=== PATIENT | female | born 1950 | race Caucasian/White ===

== ENCOUNTER 2016-12-31 11:23 | Emergency (ER) | payer BC, OTHER ==
[~2016-12-31] VITALS: Ht 162.6 cm; Wt 63.5 kg
[~2016-12-31 11:23] MED LIST: CYM30 PO; FERR-57 PO; FERR240T5 PO; HYDR-4100 PO; METO25TA3 PO; THIA100T13 PO
[2016-12-31 11:32] VITALS: BP 114/54; PULSE 86; RESP 19; TEMP 98.4; O2SAT 94
[2016-12-31 11:59] LABS: BASOPHILS # (AUTO) 0.1 K/uL (0.0-0.2); BASOPHILS % (AUTO) 1.3 % (0.0-2.0); EOSINOPHILS # (AUTO) 0.2 K/uL (0.0-0.4); EOSINOPHILS % (AUTO) 3.9 % (0.0-4.0); HEMATOCRIT 38.8 % (36-48); HEMOGLOBIN 13.1 g/dL (12.0-16.0); LYMPHOCYTES # (AUTO) 2.1 K/uL (1.0-5.5); LYMPHOCYTES % (AUTO) 42.4 % (20.5-51.5); MEAN CORPUSCULAR HEMOGLOBIN 34 pg (27-31); MEAN CORPUSCULAR HGB CONC 34 % (32-36); MEAN CORPUSCULAR VOLUME 101 fL (79.0-98.0); MONOCYTES # (AUTO) 0.3 K/uL (0.0-1.0); MONOCYTES % (AUTO) 6.8 % (1.7-9.3); NEUTROPHILS # (AUTO) 2.3 K/uL (1.8-7.7); NEUTROPHILS % (AUTO) 45.6 % (40.0-70.0); PLATELET COUNT (AUTO) 139 K/uL (130-430); RED BLOOD CELL COUNT(AUTO) 3.85 MIL/uL (4.2-6.2); RED CELL DISTRIBUTION WIDTH 13.2 % (9.0-15.0)
[2016-12-31 12:14] LABS: PROTHROMBIN TIME 10.9 SECS (9.5-12.5)
[2016-12-31 12:17] LABS: ANION GAP 13 (5-15); CALCIUM 8.6 mg/dL (8.4-11.0); CHLORIDE 107 mmol/L (98-107); CREATININE 0.61 mg/dL (0.55-1.30); GLUCOSE 96 mg/dL (70-99); POTASSIUM 3.8 mmol/L (3.5-5.1); SODIUM SERUM 139 mmol/L (136-145); UREA NITROGEN, BLOOD 4 mg/dL (8-21)
[2016-12-31 12:18] LABS: GFR AFRICAN AMERICAN 126 mL/min (>90)
[2016-12-31 12:21] LABS: ALANINE AMINOTRANSFERASE 31 U/L (12-78); ALBUMIN 3.4 g/dL (3.4-4.8); ALCOHOL, BLOOD 270 mg/dL (<10); ASPARTATE AMINOTRANSFERASE 47 U/L (10-37); TOTAL BILIRUBIN 0.4 mg/dL (0.0-1.0)
[2016-12-31 12:23] LABS: ACETAMINOPHEN < 1 ug/mL (1-30)
[2016-12-31 13:41] LABS: BILIRUBIN,URINE NEGATIVE (NEGATIVE); BLOOD, URINE NEGATIVE (NEGATIVE); CLARITY/URINE CLEAR (CLEAR); COLOR,URINE YELLOW (YELLOW); GLUCOSE,URINE NEGATIVE (NEGATIVE); KETONES,URINE TRACE (NEGATIVE); LEUKOCYTE ESTERASE ,URINE NEGATIVE (NEGATIVE); NITRITE, URINE NEGATIVE (NEGATIVE); PROTEIN URINE NEGATIVE (NEGATIVE); UROBILINOGEN,URINE 0.2 (0.2-1.0)
[2016-12-31 13:50] LABS: BACTERIA,URINE RARE /HPF (None Seen); RBC,URINE 0-3 /HPF (0-3)
[2016-12-31 13:51] LABS: MUCUS,URINE 1+ /LPF (None Seen)
[2016-12-31 13:52] LABS: BARBITURATE, URINE NEGATIVE (NEG <=200); BENZODIAZEPINE, URINE NEGATIVE (NEG <=150); CANNABINOID, URINE NEGATIVE (NEG <=50); COCAINE, URINE NEGATIVE (NEG <=150); METHAMPHETAMINES SCREEN,URINE NEGATIVE (NEG <=500); OPIATE, URINE NEGATIVE (NEG <=100); PHENCYCLIDINE SCREEN,URINE NEGATIVE (NEG <=25); UR TRICYCLIC ANTIDEPRESSANTS NEGATIVE (NEG <=300); URINE AMPHETAMINE NEGATIVE (NEG <=500); URINE METHADONE NEGATIVE (NEG <=200); URINE OXYCODONE SCREEN NEGATIVE (NEG <=100); URINE PROPOXYPHENE SCREEN NEGATIVE (NEG <=300)
[2016-12-31 16:34] VITALS: BP 116/58; PULSE 80; RESP 20; TEMP 98.4; O2SAT 96
== END 2016-12-31 16:34 | disposition home or self-care (01) ==
LOC: SED 11:38
DX: S01.112A Laceration without foreign body of left eyelid and periocular area, initial encounter (principal); F10.129 Alcohol abuse with intoxication, unspecified; W01.0XXA Fall on same level from slipping, tripping and stumbling without subsequent striking against object, initial encounter; Y93.89 Activity, other specified; Y92.89 Other specified places as the place of occurrence of the external cause; Y99.8 Other external cause status
CPT/HCPCS: 36415; 70450; 70486; 71010; 72125; 80053; 80307; 81000; 84484; 85025; 85610; 85730; 93005; 99285; G0480; G0481; G0482

== ENCOUNTER 2017-12-06 17:05 | Inpatient (IN) | payer OTHER ==
[~2017-12-06] VITALS: Ht 167.6 cm; Wt 66.2 kg
[2017-12-06 17:05] VITALS: BP_SYST 156
[~2017-12-06 17:05] MED LIST changes: -HYDR-4100 PO
--- NOTE | 2017-12-06 17:05 | NUR ---
Pt placed in bed 6 by [facility] 64
--- NOTE | 2017-12-06 17:10 | NUR ---
ER Dr. Figueroa at bedside examining patient.
--- NOTE | 2017-12-06 17:15 | NUR ---
Pt presents with 20G IV on L hand.
--- NOTE | 2017-12-06 17:15 | NUR ---
Pt presents to ER s/p mechanical fall. Pt was found on floor by her landlord, according to pt she "passed out" 3 days ago and woke up on the floor of her apartment. Pt states she was on the ground for 3 days before landlord discovered her this afternoon. Pt reports that she was unable to help herself off from the ground due to general weakness. Upon arrival to ER, pt has purplish discoloration on L shoulder; L shoulder also stiff and edematous. Pt reports mild pain on L shoulder with movement. Pt's clothing contaminated with feces and urine; pt cleaned up and changed into hospital gown. Pt has redness to coccyx and abrasions to lower extremities. Pt AOX4, speaking full sentences, respirations even and unlabored, no signs of acute distress.
[2017-12-06] MEDS ORDERED: NACL 0.9% 1,000 ML IV ONE (17:30)
[2017-12-06] MEDS ORDERED: ONDANSETRON HCL 4 MG/2 ML VIAL IVP ONE (17:30)
[2017-12-06] MEDS ORDERED: fentaNYL CITRATE/PF 100 MCG/2 ML AMP IVP ONE (17:30)
--- NOTE | 2017-12-06 17:30 | NUR ---
Radiology at bedside.
--- NOTE | 2017-12-06 17:37 | NUR ---
Laboratory at bedside.
--- NOTE | 2017-12-06 17:52 | NUR ---
Pt medicated as ordered by Dr. Figueroa; pt tolerated well; will continue to monitor. Pt on superintendent pier.
--- NOTE | 2017-12-06 18:00 | NUR ---
Patient transported to radiology via gurney, accompanied by rad staff.
[2017-12-06 18:04] LABS: BASOPHILS # (AUTO) 0.1 K/uL (0.0-0.2); BASOPHILS % (AUTO) 0.8 % (0.0-2.0); HEMATOCRIT 32.6 % (36-48); HEMOGLOBIN 11.3 g/dL (12.0-16.0); LYMPHOCYTES # (AUTO) 0.9 K/uL (1.0-5.5); LYMPHOCYTES % (AUTO) 9.5 % (20.5-51.5); MEAN CORPUSCULAR HEMOGLOBIN 34 pg (27-31); MEAN CORPUSCULAR HGB CONC 35 % (32-36); MEAN CORPUSCULAR VOLUME 99 fL (79.0-98.0); MONOCYTES # (AUTO) 1.1 K/uL (0.0-1.0); MONOCYTES % (AUTO) 12.4 % (1.7-9.3); NEUTROPHILS # (AUTO) 6.9 K/uL (1.8-7.7); NEUTROPHILS % (AUTO) 77.3 % (40.0-70.0); PLATELET COUNT (AUTO) 117 K/uL (130-430); RED BLOOD CELL COUNT(AUTO) 3.29 MIL/uL (4.2-6.2); RED CELL DISTRIBUTION WIDTH 13.4 % (9.0-15.0)
--- NOTE | 2017-12-06 18:10 | NUR ---
Returned from radiology, back to [facility].
--- NOTE | 2017-12-06 18:24 | NUR ---
Medication reconciliation completed with information provided by pt. Any prior medication reconciliation on file was reviewed and corrected.
[2017-12-06 18:34] LABS: CALCIUM 9.1 mg/dL (8.4-11.0); CREATININE 1.18 mg/dL (0.55-1.30); POTASSIUM 3.5 mmol/L (3.5-5.1)
[2017-12-06 18:36] LABS: INR 1.1 (0.8-1.2); PROTHROMBIN TIME 11.5 SECS (9.5-12.5)
--- NOTE | 2017-12-06 18:39 | NUR ---
Pt resting comfortably on gurney, no signs of distress, will continue to monitor.
[2017-12-06 18:48] LABS: TOTAL BILIRUBIN 2.3 mg/dL (0.0-1.0)
--- NOTE | 2017-12-06 19:08 | NUR ---
Recieved report from De SANCHEZ. Will assume care at this time.
[2017-12-06 19:22] LABS: CKMB RELATIVE INDEX 0.8 (0.0-2.9); CREATINE KINASE MB 17.2 ng/mL (0-3.6)
[2017-12-06] MEDS ORDERED: ASPIRIN 81 MG TAB.CHEW PO ONE (19:30)
[2017-12-06] MEDS ORDERED: MORPHINE 4 MG/ML INJ. SYRINGE IVP PRN (19:30)
--- NOTE | 2017-12-06 19:33 | NUR ---
Patient will be admitted to care of Dr. Bailey Admitted to Telemetry unit. Will go to room 120B. Belongings list completed. Summary report printed. Report will be given at bedside. Transfer to telemetry via ACLS protocol. Licensed nurse present. IV present no signs or symptoms of infiltration.
[2017-12-06 19:40] VITALS: BP_SYST 127
--- NOTE | 2017-12-06 19:40 | NUR ---
ADMISSION NOTE Received patient from ER via gurney. Patient admitted with diagnosis of ELEVATED TROPONIN. Patient is awake, alert, oriented X . Patient oriented to hospital room, call light, toileting, pain management and safety-teach back done. Patient informed that LORAINE will be HER nurse and that their room number is 120B. Personal belongings checked and Belongings List documented. Call light within reach.
--- NOTE | 2017-12-06 20:00 | NUR ---
Initial PM Note Pt is fully awake, alert and oriented x4. Speech is clear and pt is able to make her needs known. Lt arm sling is in place and neurovascular checks to BUE are WNL. No c/o pain at this time. Pt is able to wiggle all her fingers freely. Pt denies numbness or tingling sensation. Saline lock in left hand is without any signs of infiltration. Call light is with pt and bed alarm is on. Pt was instructed to call for assistance as needed and pt verbalized understanding.
--- NOTE | 2017-12-06 21:50 | NUR ---
Paged Dr. Bailey Pt's heart rates noted to be ranging from low 100's to 170's. Pt is asymptomatic. Dr. Bailey was paged.
[2017-12-06] MEDS ORDERED: DILTIAZEM HCL 25 MG/5 ML VIAL IVP ONE (22:00)
[2017-12-06] MEDS ORDERED: DILTIAZEM HCL 25 MG/5 ML VIAL ONE (22:09)
--- NOTE | 2017-12-06 22:19 | NUR ---
Cardizem IV Cardizem 10mg was given IV as ordered by Dr. Bailey. HR 145 and BP 96/60. Addendum: 12/07/17 at 0248 by Soo Vázquez RN Pt remains asymptomatic.
[2017-12-07 00:04] VITALS: BP_SYST 100
[2017-12-07] MEDS ORDERED: ONDANSETRON HCL 4 MG/2 ML VIAL IVP PRN (00:30)
[2017-12-07] MEDS ORDERED: ALBUTEROL SULFATE 0.083% 2.5 MG/3 ML VIAL.NEB INH PRN (00:30)
[2017-12-07] MEDS ORDERED: NACL 0.9% 1,000 ML IV ONE ×2 (00:30)
[2017-12-07] MEDS ORDERED: LORazepam 2 MG/ML VIAL IVP PRN (00:30)
[2017-12-07] MEDS ORDERED: MORPHINE 2 MG/ML INJ. SYRINGE IVP PRN (00:30)
--- NOTE | 2017-12-07 00:41 | NUR ---
CONSULTATION PAGED/CALLED Reason for Consultation: LEFT HUMERAL FRACTURE Person Who was Notified:ZA Consulting Physician: CHAPO LOMBARDI IS SECURITIES RESEARCH ANALYST Substance Abuse Specialist Specialty: ORTHO Ordering Physician: VIOLET
--- NOTE | 2017-12-07 00:50 | NUR ---
CONSULTATION PAGED/CALLED Reason for Consultation: ELVATED TROP Person Who was Notified: DRUM HANDLER 22 Consulting Physician: MICHEAL SWENSON IS COMPENSATION CONSULTING MANAGER Telecom Engineer Specialty: CARDIO Ordering Physician: FRANCISCO
--- NOTE | 2017-12-07 01:26 | NUR ---
Normal Saline Bolus Started NS IVF bolus at 999ml/hr as ordered by Dr. Bailey. IV site is without any signs of infiltration.
--- NOTE | 2017-12-07 01:30 | NUR ---
Dr. Bailey's Visit Dr. Bailey came to see pt.
[2017-12-07 01:50] VITALS: BP_SYST 96
[2017-12-07] MEDS ORDERED: SODIUM BICARBONATE 8.4% JECT 50 MEQ/50 ML SYRINGE ONE (01:57)
--- NOTE | 2017-12-07 02:00 | NUR ---
Rounds Pt is resting comfortably in bed. Bolus NS IVF is infusing well in left hand at 999ml/hr. Heart rates are in the 80's.
[2017-12-07 02:37] LABS: CALCIUM 7.5 mg/dL (8.4-11.0); CREATININE 0.84 mg/dL (0.55-1.30); POTASSIUM 3.6 mmol/L (3.5-5.1)
[2017-12-07 02:45] LABS: ALBUMIN 2.9 g/dL (3.4-4.8); TOTAL BILIRUBIN 1.2 mg/dL (0.0-1.0)
--- NOTE | 2017-12-07 02:49 | NUR ---
Critical Lab Result Troponin 0.164. Pt is asymptomatic and sleeping without any distress noted. Dr. Chance who is covering for Dr. Patel has been paged.
[2017-12-07] MEDS: SODIUM BICARBONATE 8.4% VIAL 50 MEQ in 0.45% NACL 1,000 ML IV SCH ×3 (03:18→15:10)
--- NOTE | 2017-12-07 04:00 | NUR ---
Rounds Pt is sleeping without any distress noted. IVF is infusing well in left hand. Fall and safety precautions are in place. Call light is with pt and bed alarm is on.
--- NOTE | 2017-12-07 06:30 | NUR ---
CLOSING NOTE PT IS AWAKE AND RESTING COMFORTABLY IN BED. IVF IS INFUSING WELL IN LH. HEART RATES ARE IN THE 80'S AND PT DENIES DISCOMFORT. FALL AND SAFETY PRECAUTIONS ARE IN PLACE. WILL ENDORSE TO DAY SHIFT NURSE.
[2017-12-07 06:41] LABS: BASOPHILS % (AUTO) 0.3 % (0.0-2.0); EOSINOPHILS % (AUTO) 0.1 % (0.0-4.0); HEMOGLOBIN 8.2 g/dL (12.0-16.0); LYMPHOCYTES # (AUTO) 1.1 K/uL (1.0-5.5); LYMPHOCYTES % (AUTO) 19.1 % (20.5-51.5); MEAN CORPUSCULAR HEMOGLOBIN 33 pg (27-31); MEAN CORPUSCULAR HGB CONC 33 % (32-36); MEAN CORPUSCULAR VOLUME 101 fL (79.0-98.0); MONOCYTES # (AUTO) 0.7 K/uL (0.0-1.0); MONOCYTES % (AUTO) 12.5 % (1.7-9.3); NEUTROPHILS # (AUTO) 4.1 K/uL (1.8-7.7); PLATELET COUNT (AUTO) 83 K/uL (130-430); RED BLOOD CELL COUNT(AUTO) 2.48 MIL/uL (4.2-6.2); RED CELL DISTRIBUTION WIDTH 13.2 % (9.0-15.0); WHITE BLOOD COUNT (AUTO) 5.9 K/uL (4.8-10.8)
--- NOTE | 2017-12-07 07:10 | NUR ---
Critical Lab: Troponin 0.212. Paging Dr. Patel. Awaiting callback.
--- NOTE | 2017-12-07 07:27 | NUR ---
Opening Note: Patient laying in bed resting. Patient denies pain and discomfort. Breathing is even ad unlabored with no distress noted. IV Patent and intact running IV fluids per MD order. Immobilizer in place. Safety precautions in place; bed in lowest position, wheels locked, side rails x3, bed alarm activated and call light within reach. No needs at this time. Will continue to monitor.
[2017-12-07 07:32] LABS: CKMB RELATIVE INDEX 0.9 (0.0-2.9); CREATINE KINASE MB 11.6 ng/mL (0-3.6)
[2017-12-07 08:12] VITALS: BP_SYST 127
[2017-12-07] MEDS: DULoxetine HCL 30 MG CAPSULE.DR (CYMBALTA) PO SCH (09:24)
[2017-12-07] MEDS: METOPROLOL SUCCINATE 25 MG TAB.SR.24H (TOPROL XL) PO SCH (09:25)
[2017-12-07] MEDS: ASPIRIN 81 MG TAB.CHEW PO SCH (09:25)
[2017-12-07] MEDS: HYDROcodone/ACETAMIN 5-325 MG TAB (NORCO/ VICODIN) PO PRN ×2 (09:25→20:34)
[2017-12-07] MEDS: THIAMINE HCL 100 MG TABLET PO SCH (09:25)
[2017-12-07] MEDS: ENOXAPARIN SODIUM 40 MG/0.4 ML SYRINGE SUBCUT SCH (09:27)
--- NOTE | 2017-12-07 10:02 | NUR ---
Rounding: Patient laying in bed resting. No distress noted. No needs at this time. Will continue to monitor.
--- NOTE | 2017-12-07 10:06 | NUR ---
CONSULTATION PAGED/CALLED Reason for Consultation: [] HUMURUS FRACTURE Person Who was Notified: [] CHEN Consulting Physician: [] DR BRO It Coordinator Specialty: [] ORTHO Ordering Physician: [] DR KHAN
--- NOTE | 2017-12-07 10:10 | NUR ---
Nutrition Update Guilherme Scale 18 noted. Pt admitted for elevated troponin, fracture humerus. Diet: cardiac BMI: 23.6 kg/m2 RD to follow per nutrition care standards.
[2017-12-07 12:19] VITALS: BP_SYST 103
--- NOTE | 2017-12-07 12:37 | NUR ---
Rounding: Patient laying in bed resting. Patient denies pain and discomfort. Breathing is even and unlabored with no distress noted. Morning medications tolerated well. Safety precautions in place; bed in lowest position, wheels locked, side rails x3, bed alarm activated and call light within reach. No needs at this time. Will continue to monitor.
--- NOTE | 2017-12-07 14:04 | NUR ---
Rounding: Patient laying in bed resting. No distress noted. No needs at this time. Will continue to monitor.
--- NOTE | 2017-12-07 14:30 | NUR ---
IV RE-INSERTION: IV line dislodged. Restarted on right forearm. Successful after 1 attempts. Resumed current IVF of 50 meq of sodium bicarbonate in 0.45 NS and regulated @ 150 per hour. Will observe for any signs of infiltration.
--- NOTE | 2017-12-07 16:10 | NUR ---
Rounding: Patient laying in bed resting. Patient denies pain and discomfort. Breathing is even and unlabored with no distress noted. IV fluids running with no signs of infiltration. Safety precautions in place; bed in lowest position, wheels locked, side rails x3, bed alarm activated and call light within reach. No needs at this time. Will continue to monitor.
[2017-12-07 16:23] VITALS: BP_SYST 100
--- NOTE | 2017-12-07 18:29 | NUR ---
Closing Note: Patient laying in bed resting. Patient denies pain and discomfort. Breathing is even ad unlabored with no distress noted. IV Patent and intact running IV fluids per MD order. Shoulder immobilizer in place. Safety precautions in place; bed in lowest position, wheels locked, side rails x3, bed alarm activated and call light within reach. All needs met. Will endorse plan of care to NOC, nurse.
--- NOTE | 2017-12-07 19:00 | NUR ---
REPORT: RECEIVED BEDSIDE REPORT FROM DANIEL THURMAN.PATIENT IN BED AWAKE ORIENTED X3.HAS TOLERABLE LEFT UPPER FX ARM.
--- NOTE | 2017-12-07 19:35 | NUR ---
PM ASSESSMENT: PATIENT IN BED ,AWAKE ORIENTED X3. HAS LEFT UPPER ARM IMMOBILIZER DUE TO FRACTURE.ARM SORE. MOVES FINGERS AND HAND FREELY. COLOR NORMAL. IVF INFUSING WELL AT 150ML/HR. ROOM AIR. BP 89/47 HR 88/MIN SR, LOWERED BED SLIGHTLY 86/45. DENIES DIZZINESS ,CHEST PAIN NOR SOB. TOLD PATIENT WILL LAY HEAD OF BED AT LEAST 20 DEGREES. RECHECKED AT 2019 BP 114/58.LIGHT BRUISE TO BOTH KNEES. MOVES LEGS FREELY. NORMAL SINUS RHYTHM THIS TIME. WILL MONITOR CLOSELY.
--- NOTE | 2017-12-07 20:35 | NUR ---
PAIN: COMPLAIN OF LEFT UPPER ARM/SHOULDER PAIN.LEVEL 5/10. NORCO 5/325MG PO GIVEN. REPOSITIONED FOR COMFORT.
--- NOTE | 2017-12-07 22:15 | NUR ---
STILL AWAKE. WATCHING TV SHOWS. NO PAIN IF NO MOVEMENT.
[2017-12-08 00:05] VITALS: BP_SYST 100
--- NOTE | 2017-12-08 00:35 | NUR ---
PATIENT AWAKEN DUE TO IV PUMP ALARM. NO DISTRESS.
[2017-12-08] MEDS: SODIUM BICARBONATE 8.4% VIAL 50 MEQ in 0.45% NACL 1,000 ML IV SCH ×3 (01:44→11:45)
--- NOTE | 2017-12-08 03:30 | NUR ---
RESTING QUITELY WITH EYES CLOSE.
--- NOTE | 2017-12-08 05:05 | NUR ---
VOIDED VIA BED QIU WITH SMEAR OF LIGHT BLACKISH STOOL. GRIFFIN CARE RENDERED.
--- NOTE | 2017-12-08 06:45 | NUR ---
CLOSING: ALL NEEDS WERE ATTENDED.FRACTURE PAIN PRESENT DURING MOVEMENT OTHERWISE SORE.VOIDED WITH DARK CONCENTRATED URINE. IVF INFUSING AT 150ML/HR. SELF TURN AT TIMES.NO ACUTE DISTRESS. ROOM AIR. CALL LIGHT HAS BEEN WITHIN REACH AND USES CORRECTLY. BED IN LOW POSITION.
--- NOTE | 2017-12-08 07:50 | NUR ---
INITIAL NOTE RECEIVED PT IN BED, NO S/S OF DISTRESS OR SOB NOTED, PT HAS NO C/O PAIN AT THIS TIME, PT IN STABLE CONDITION, PT AAOX4, VERBAL, IV CATHETER PATENT, NO SIGNS OF INFECTION OR INFILTRATION NOTED. BED AT LOWEST POSITION, CALL LIGHT WITHIN REACH, WILL CONTINUE TO MONITOR PT FOR ANY CHANGES. PT HAS AN IMMOBILIZER ON LEFT ARM, PULSE PALPABLE, CAPILLARY REFILL LESS THAN 3 SECONDS, ABLE TO WIGGLE FINGERS. FALL AND SAFETY PRECAUTIONS IN PLACE.
[2017-12-08] MEDS: DULoxetine HCL 30 MG CAPSULE.DR (CYMBALTA) PO SCH (07:58)
[2017-12-08] MEDS: METOPROLOL SUCCINATE 25 MG TAB.SR.24H (TOPROL XL) PO SCH (07:58)
[2017-12-08] MEDS: ASPIRIN 81 MG TAB.CHEW PO SCH (07:58)
[2017-12-08] MEDS: THIAMINE HCL 100 MG TABLET PO SCH (07:58)
[2017-12-08] MEDS: HYDROcodone/ACETAMIN 5-325 MG TAB (NORCO/ VICODIN) PO PRN (07:58)
[2017-12-08] MEDS: ENOXAPARIN SODIUM 40 MG/0.4 ML SYRINGE SUBCUT SCH (08:00)
[2017-12-08 08:03] VITALS: BP_SYST 125
--- NOTE | 2017-12-08 10:21 | NUR ---
ROUNDS PT IN BED, NO S/S OF DISTRESS OR SOB NOTED, PT WATCHING TV, WILL CONTINUE TO MONITOR PT FOR ANY CHANGES, PT IN STABLE CONDITION.
[2017-12-08 10:30] LABS: BASOPHILS % (AUTO) 0.7 % (0.0-2.0); EOSINOPHILS % (AUTO) 0.7 % (0.0-4.0); HEMATOCRIT 23.3 % (36-48); HEMOGLOBIN 7.9 g/dL (12.0-16.0); LYMPHOCYTES # (AUTO) 1.2 K/uL (1.0-5.5); LYMPHOCYTES % (AUTO) 23.3 % (20.5-51.5); MEAN CORPUSCULAR HEMOGLOBIN 34 pg (27-31); MEAN CORPUSCULAR HGB CONC 34 % (32-36); MEAN CORPUSCULAR VOLUME 99 fL (79.0-98.0); MONOCYTES # (AUTO) 0.4 K/uL (0.0-1.0); MONOCYTES % (AUTO) 7.6 % (1.7-9.3); NEUTROPHILS # (AUTO) 3.3 K/uL (1.8-7.7); NEUTROPHILS % (AUTO) 67.7 % (40.0-70.0); PLATELET COUNT (AUTO) 90 K/uL (130-430); RED BLOOD CELL COUNT(AUTO) 2.36 MIL/uL (4.2-6.2); RED CELL DISTRIBUTION WIDTH 12.9 % (9.0-15.0); WHITE BLOOD COUNT (AUTO) 4.9 K/uL (4.8-10.8)
[2017-12-08 11:15] LABS: CKMB RELATIVE INDEX 0.5 (0.0-2.9); CREATINE KINASE MB 2.7 ng/mL (0-3.6)
[2017-12-08 12:04] VITALS: BP_SYST 114
--- NOTE | 2017-12-08 12:50 | NUR ---
ROUNDS PT IN BED, NO S/S OF DISTRESS OR SOB NOTED, PT WATCHING TV, WILL CONTINUE TO MONITOR PT FOR ANY CHANGES, PT IN STABLE CONDITION.
--- NOTE | 2017-12-08 12:51 | NUR ---
Pagedanielle Scott for CBC results. Addendum: 12/08/17 at 1336 by Maryam Dias RN SPOKE WITH DR SCOTT AND LET HIM KNOW ABOUT CBC RESULTS, PER MD NO NEW ORDERS GIVEN AND PT CAN BE TRANSFERRED TO [facility] PER PREVIOUS ORDER
--- NOTE | 2017-12-08 13:17 | NUR ---
[facility] ROOM AVAILABLE FOR [facility], ROOM 112B, REPORT TO BE GIVEN TO [phone], [facility] ON WILL CALL [phone].
--- NOTE | 2017-12-08 13:23 | NUR ---
DCP. MET WITH PATIENT. A/O LIVES ALONE. NO SPOUSE NO CHILDREN. NOK , MOTHER LIVES AT [place]. LIVES AT A SECOND FLOOR APT, IN THE PROCESS OF MOVING TO GROUND FLOOR APT.DX MECHANICAL FALL, RHABDO, LEFT HUMERUS FRACTURE, DEPRESSION, WINE OCCASIONALLY TRANSPO, USES DIAL A RIDE. SHE DOES NOT USE ANY DME FOR AMBULATION. DOES NOT DRIVE. DCP DISCUSSED. TO SNF FOR P.T. AND PAIN MNGT. PATIENT AGREED. [facility] RM [address]. T [phone]. [facility] T [phone] ARRANGED FOR A WILL CALL. FAISAL FINNEY RN/CM T [phone].
--- NOTE | 2017-12-08 13:40 | NUR ---
TEENA. MOLD PRESSER AT 5 PM [facility] T [phone].
[2017-12-08 14:45] VITALS: BP_SYST 101
--- NOTE | 2017-12-08 14:50 | NUR ---
ROUNDS PT IN BED, NO S/S OF DISTRESS OR SOB NOTED, PT WATCHING TV, WILL CONTINUE TO MONITOR PT FOR ANY CHANGES, PT IN STABLE CONDITION.
--- NOTE | 2017-12-08 15:15 | NUR ---
REPORT REPORT GIVEN TO ANI AT [facility] [phone].
--- NOTE | 2017-12-08 16:10 | NUR ---
ROUNDS PT IN BED, NO S/S OF DISTRESS OR SOB NOTED, PT WATCHING TV, WILL CONTINUE TO MONITOR PT FOR ANY CHANGES, PT IN STABLE CONDITION.
[2017-12-08 16:35] VITALS: BP_SYST 101
--- NOTE | 2017-12-08 17:00 | NUR ---
PT TRANSFERRED Report given to Adriana at [facility]. Transfer packet with Transfer Orders and Medication Reconciliation form given to EMT with report. Exitcare provided. [facility] ID band removed, replaced with ID band with pt's name and . IV catheter removed, intact and dressing applied, no active bleeding. All belongings sent with patient. Patient left floor via gurney escorted by EMT in no distress.
== END 2017-12-08 17:25 | DRG 281 ==
LOC: SED 17:05 → STU 19:21
PROVIDERS: ADMIT Internal Medicine; ATTEND Internal Medicine
DX: I21.A1 Myocardial infarction type 2 (principal); S42.292A Other displaced fracture of upper end of left humerus, initial encounter for closed fracture; M62.82 Rhabdomyolysis; D64.9 Anemia, unspecified; F32.9 Major depressive disorder, single episode, unspecified; I10 Essential (primary) hypertension; R01.1 Cardiac murmur, unspecified; D69.6 Thrombocytopenia, unspecified; R55 Syncope and collapse; R00.0 Tachycardia, unspecified; F10.20 Alcohol dependence, uncomplicated; W01.0XXA Fall on same level from slipping, tripping and stumbling without subsequent striking against object, initial encounter; Y93.01 Activity, walking, marching and hiking; Y92.038 Other place in apartment as the place of occurrence of the external cause; Y99.8 Other external cause status; Z82.49 Family history of ischemic heart disease and other diseases of the circulatory system; Z88.0 Allergy status to penicillin; Z79.899 Other long term (current) drug therapy
CPT/HCPCS: 36415; 70450-TC; 71045; 73060-TC; 80053; 80061; 82550-TC; 82553-TC; 82962; 84484; 85025; 85610-TC; 85730-TC; 93005; 93306; 93880; 96361; 96374; 96375; 99285; J1650; J2405; J3010; J3490; J7030